=== PATIENT | female | born 1975 | race Caucasian/White ===

== ENCOUNTER 2019-04-03 12:39 | Emergency (ER) | payer OTHER ==
--- NOTE | 2019-04-03 12:49 | PDOC ---
Rapid Medical Evaluation Time Seen by Provider: 04/03/19 12:46 Medical Evaluation: 04/03/19 12:46 CC: kidney stones- u/s performed as outpatient PE: R CVAT Orders: urine, IVF, Toradol The patient will proceed to ED for continued evaluation. Discharge Disposition - Diagnosis Flank pain - Referrals - Patient Instructions - Post Discharge Activity
[2019-04-03 12:50] VITALS: BP 131/86; PULSE 91; TEMP 97.7; BMI 20.9
[2019-04-03] MEDS ORDERED: KETOROLAC TROMETHAMINE 30 MG/1 ML VIAL IVPUSH ONE (12:50)
[2019-04-03] MEDS ORDERED: SODIUM CHLORIDE 1,000 ML IV STA (12:50)
[2019-04-03] MEDS ORDERED: morphine CARPU-JECT 2 MG/1 ML DISP.SYRIN IVPUSH ONE (14:12)
[2019-04-03] MEDS ORDERED: MORPHINE SULFATE 8 MG/ML VIAL ONE (14:15)
--- NOTE | 2019-04-03 14:16 | PDOC ---
History of Present Illness - General Chief Complaint: Pain, Acute Stated Complaint: KIDNEY STONES Time Seen by Provider: 04/03/19 12:46 History Source: Patient Exam Limitations: No Limitations - History of Present Illness Travel History: No Initial Comments: 04/03/19 14:13 44 y/o presents to the ED with c/o Right sided abdominal pain which began this morning at around 3 AM which she describes as sharp causing sweats. Patient denies GI history history, recent travel, recent illness. Patient states took Aleve at around 9 AM with no relief. Patient states went to an urgent care clinic who performed an ultrasound transvaginally and over the kidney was told that she had a dilated ureter and was sent here to the ER for further evaluation. Timing/Duration: reports: constant, intermittent (severe) Quality: reports: moderate, sharpness Abdominal Pain Onset Location: reports: flank Pain Radiation: reports: back Activities at Onset: reports: none Aggravating Factors: improves with: None Alleviating Factors: improves with: None Past History - Travel Traveled outside of the country in the last 30 days: No Close contact w/someone who was outside of country & ill: No - Past Medical History Allergies/Adverse Reactions: Allergies Allergy/AdvReac Type Severity Reaction Status Date / Time No Known Allergies Allergy Verified 04/03/19 12:51 Cancer: Yes (BREAST CA, CYSTS) COPD: No - Surgical History Abdominal Surgery: (TUBAL LIGATION) - Psycho Social/Smoking Cessation Hx Smoking History: Current every day smoker Number of Cigarettes Smoked Daily: 1 Information on smoking cessation initiated: No Hx Alcohol Use: Yes (OCCASIONALLY) Drug/Substance Use Hx: No Patient Lives Alone: No Lives with/in: spouse/SO Review of Systems - Review of Systems Able to Perform ROS?: No Is the patient limited Swazi proficient: No Constitutional: No: Symptoms Reported HEENTM: No: Symptoms Reported Respiratory: No: Symptoms reported Cardiac (ROS): No: Symptoms Reported ABD/GI: Yes: Nausea. No: Constipated, Diarrhea : Yes: Flank Pain Musculoskeletal: No: Symptoms Reported Integumentary: No: Symptoms Reported Neurological: No: Symptoms reported *Physical Exam - Vital Signs Last Vital Signs Temp Pulse Resp BP Pulse Ox 97.7 F 91 H 16 131/86 96 04/03/19 12:48 04/03/19 12:48 04/03/19 12:48 04/03/19 12:48 04/03/19 12:48 - Physical Exam General Appearance: Yes: Nourished, Appropriately Dressed. No: Apparent Distress HEENT: negative: Pale Conjunctivae Neck: positive: Normal Thyroid Respiratory/Chest: positive: Lungs Clear, Normal Breath Sounds. negative: Respiratory Distress, Accessory Muscle Use Cardiovascular: positive: Regular Rhythm, Regular Rate. negative: Murmur Gastrointestinal/Abdominal: positive: Soft, Tenderness (Right flank) Musculoskeletal: positive: CVA Tenderness (R) Extremity: positive: Normal Inspection Integumentary: positive: Normal Color, Warm, Moist Neurologic: positive: Motor Strength 5/5 (Ambulatory) ED Treatment Course - LABORATORY CBC & Chemistry Diagram: 04/03/19 16:04 04/03/19 16:04 - Medications Given in the ED: ED Medications Discontinued Medications Generic Name Dose Route Start Last Admin Trade Name Freq PRN Reason Stop Dose Admin Sodium Chloride 1,000 mls @ 1,000 mls/hr 04/03/19 12:50 04/03/19 13:25 Normal Saline - IV 04/03/19 13:49 1,000 mls/hr ASDIR STA Administration Ketorolac Tromethamine 30 mg 04/03/19 12:50 04/03/19 13:25 Toradol Injection - IVPUSH 04/03/19 12:51 30 mg ONCE ONE Administration Medical Decision Making - Medical Decision Making 04/03/19 14:18 complaint: Patient with right-sided flank pain since 3 AM this morning which occurred suddenly. Patient went to urgent care clinic and was told she had a dilated ureter and likely was passing a kidney stone and was sent to the ER for further evaluation. Exam: Patient with right flank and right CVA tenderness vital signs stable no active vomiting Plan: Urine, IV fluids, Toradol and spiral CT ordered in RME 04/03/19 15:18 Laboratory Tests 04/03/19 14:24 Ur Specific Micro 1.037 H Urine Ketones 1+ H Urine Bilirubin Negative Ur Leukocyte Esterase Negative Patient added for CBC, comp and lipase patient currently in CT. 04/03/19 16:06 Ct shows No evidence of urinary tract calculi or obstructive uropathy. There is noted 11 mm cyst within the upper pole of the right kidney. Patient now complaining of right lower quadrant right suprapubic pain. On reexam she is tender in the right suprapubic area. Will order labs along with serum and transvaginal ultrasound Discharge - Discharge Information Problems reviewed: Yes Clinical Impression/Diagnosis: Abdominal pain Qualifiers: Abdominal location: right lower quadrant Qualified Code(s): R10.31 - Right lower quadrant pain Condition: Stable Disposition: HOME - Follow up/Referral Referrals: ON STAFF,NOT [Primary Care Provider] - - Patient Discharge Instructions Patient Printed Discharge Instructions: DI for Abdominal Pain-Adult Additional Instructions: Thank you for choosing [facility]. It was a pleasure taking care of you. No acute pathology was noted in your imaging Please follow-up with your regular doctor in 2 days Return to the Emergency Department if your symptoms worsen or persist or have other concerning symptoms. - Post Discharge Activity
[2019-04-03 14:44] LABS: PH,URINE 5.5 (5.0-8.0); URINE APPEARANCE CLOUDY; URINE BILIRUBIN NEGATIVE (NEGATIVE); URINE COLOR YELLOW; URINE GLUCOSE (UA) NEGATIVE (NEGATIVE); URINE KETONE 1+ (NEGATIVE); URINE LEUK ESTERASE NEGATIVE (NEGATIVE); URINE NITRITE NEGATIVE (NEGATIVE); URINE PROTEIN TRACE (NEGATIVE)
[2019-04-03 16:35] LABS: BASO % 0.4 % (0-2.0); EOS % 1.5 % (0-4.5); HEMATOCRIT 35.6 % (32.4-45.2); HEMOGLOBIN 11.6 GM/dL (10.7-15.3); LYMPH % 42.1 % (8-40); MCH 30.3 pg (25.7-33.7); MCHC 32.6 g/dl (32.0-36.0); MEAN CELL VOLUME 92.9 fl (80-96); MEAN PLT VOLUME 8.1 fl (7.5-11.1); MONO % 6.3 % (3.8-10.2); NEUT % 49.7 % (42.8-82.8); PLATELET COUNT 311 K/MM3 (134-434); RBC 3.83 M/mm3 (3.60-5.2); RDW 13.3 % (11.6-15.6); WHITE BLOOD COUNT 6.5 K/mm3 (4.0-10.0)
[2019-04-03 16:57] LABS: ALBUMIN 3.7 g/dl (3.4-5.0); BILIRUBIN,TOTAL 0.6 mg/dL (0.2-1); BLOOD UREA NITROGEN 10.7 mg/dL (7-18); CALCIUM 8.2 mg/dL (8.5-10.1); CREATININE 0.7 mg/dL (0.55-1.3); POTASSIUM 3.7 mmol/L (3.5-5.1); TOT PROT 6.6 g/dl (6.4-8.2)
--- NOTE | 2019-04-03 17:27 | PDOC ---
*Physical Exam - Vital Signs Last Vital Signs Temp Pulse Resp BP Pulse Ox 97.7 F 91 H 16 131/86 96 04/03/19 12:48 04/03/19 12:48 04/03/19 12:48 04/03/19 12:48 04/03/19 12:48 ED Treatment Course - LABORATORY CBC & Chemistry Diagram: 04/03/19 16:04 04/03/19 16:04 - ADDITIONAL ORDERS Additional order review: Laboratory Results 04/03/19 04/03/19 04/03/19 16:04 16:04 14:24 Sodium 141 Potassium 3.7 Chloride 111 H Carbon Dioxide 23 Anion Gap 7 L BUN 10.7 Creatinine 0.7 Est GFR (CKD-EPI)AfAm 122.99 Est GFR (CKD-EPI)NonAf 106.12 Random Glucose 73 L Calcium 8.2 L Total Bilirubin 0.6 AST 18 ALT 29 Alkaline Phosphatase 47 Total Protein 6.6 Albumin 3.7 Lipase 153 Serum , Qual Negative Urine Color Yellow Urine Appearance Cloudy Urine pH 5.5 Ur Specific Hinkley 1.037 H Urine Protein Trace Urine Glucose (UA) Negative Urine Ketones 1+ H Urine Blood Negative Urine Nitrite Negative Urine Bilirubin Negative Urine Urobilinogen 1.0 Ur Leukocyte Esterase Negative 04/03/19 16:04 RBC 3.83 MCV 92.9 MCHC 32.6 RDW 13.3 MPV 8.1 Neutrophils % 49.7 Lymphocytes % 42.1 H Monocytes % 6.3 Eosinophils % 1.5 Basophils % 0.4 - Medications Given in the ED: ED Medications Discontinued Medications Generic Name Dose Route Start Last Admin Trade Name Freq PRN Reason Stop Dose Admin Sodium Chloride 1,000 mls @ 1,000 mls/hr 04/03/19 12:50 04/03/19 13:25 Normal Saline - IV 04/03/19 13:49 1,000 mls/hr ASDIR STA Administration Ketorolac Tromethamine 30 mg 04/03/19 12:50 04/03/19 13:25 Toradol Injection - IVPUSH 04/03/19 12:51 30 mg ONCE ONE Administration Morphine Sulfate 2 mg 04/03/19 14:12 04/03/19 14:22 Morphine Injection - IVPUSH 04/03/19 14:13 2 mg ONCE ONE Administration Medical Decision Making - Medical Decision Making Patient signed out to me by MORIS Dawson Patient c/o RLQ pain radiating to back Patient had negative CT A/P Labs were drawn and were unremarkable other than glucose of 73 (patient had orange juice after labs were drawn) Now pending results of TVUS to r/o ovarian torsion or other pathology 04/03/19 17:26 TVUS negative for no acute findings Patient advised to f/u with her PCP stable for dc 04/03/19 17:48 Discharge - Discharge Information Problems reviewed: Yes Clinical Impression/Diagnosis: Abdominal pain Qualifiers: Abdominal location: right lower quadrant Qualified Code(s): R10.31 - Right lower quadrant pain Condition: Stable Disposition: HOME - Admission No - Additional Discharge Information Prescription Drug Monitoring Program (I-STOP) results: I-STOP not reviewed - Follow up/Referral Referrals: ON STAFF,NOT [Primary Care Provider] - - Patient Discharge Instructions Patient Printed Discharge Instructions: DI for Abdominal Pain-Adult Additional Instructions: Thank you for choosing [facility]. It was a pleasure taking care of you. No acute pathology was noted in your imaging Please follow-up with your regular doctor in 2 days Return to the Emergency Department if your symptoms worsen or persist or have other concerning symptoms. - Post Discharge Activity
== END 2019-04-03 18:18 | disposition home or self-care (01) ==
LOC: JER 12:39
PROC: 3E033NZ Introduction of Analgesics, Hypnotics, Sedatives into Peripheral Vein, Percutaneous Approach (ICD-10-PCS; principal; 2019-04-03)
PROC: 3E0333Z Introduction of Anti-inflammatory into Peripheral Vein, Percutaneous Approach (ICD-10-PCS; 2019-04-03)
DX: R10.31 Right lower quadrant pain (principal); Z85.3 Personal history of malignant neoplasm of breast; Z98.51 Tubal ligation status; F17.210 Nicotine dependence, cigarettes, uncomplicated
CPT/HCPCS: 36415; 74176-TC; 76830-TC; 80053; 81003; 83690; 84703; 85025; 87086; 99282-25; J7030

== ENCOUNTER 2021-02-25 13:33 | Emergency (ER) | payer OTHER ==
[2021-02-25 14:14] VITALS: BP 125/76; PULSE 85; TEMP 97.9; BMI 22.3
== END 2021-02-25 21:59 | disposition home or self-care (01) ==
LOC: JER 13:33
PROC: 3E0233Z Introduction of Anti-inflammatory into Muscle, Percutaneous Approach (ICD-10-PCS; principal; 2021-02-25)
DX: N64.4 Mastodynia (principal)
CPT/HCPCS: 76604; 99284-25

== ENCOUNTER 2021-09-06 19:47 | Emergency (ER) | payer OTHER ==
[2021-09-06 20:12] VITALS: BP 121/76; PULSE 101; TEMP 99.4; BMI 23.6
[2021-09-06] MEDS ORDERED: KETOROLAC TROMETHAMINE 30 MG/1 ML VIAL IM ONE (20:12)
[2021-09-06] MEDS ORDERED: ACETAMINOPHEN 500 MG TABLET (FP) PO ONE (20:12)
[2021-09-06] MEDS ORDERED: ACETAMINOPHEN 325 MG TABLET (FP) ONE (20:36)
[2021-09-06] MEDS ORDERED: KETOROLAC TROMETHAMINE 30 MG/1 ML VIAL ONE (20:36)
== END 2021-09-06 21:15 | disposition home or self-care (01) ==
LOC: JER 19:47
PROC: 3E0233Z Introduction of Anti-inflammatory into Muscle, Percutaneous Approach (ICD-10-PCS; principal; 2021-09-06)
DX: U07.1 COVID-19 (principal)
CPT/HCPCS: 0241U-QW; 96372; 99284-25

== ENCOUNTER 2021-12-09 12:19 | Emergency (ER) | payer OTHER ==
[2021-12-09 12:31] VITALS: BP 108/62; PULSE 103; RESP 18; TEMP 97.5; BMI 24.0
[2021-12-09] MEDS ORDERED: SODIUM CHLORIDE 0.9% 500 ML INFUS.BAG IV ONE ×2 (15:13→17:50)
[2021-12-09] MEDS ORDERED: ONDANSETRON 4 MG/2 ML VIAL IVPUSH ONE (15:13)
[2021-12-09] MEDS ORDERED: MECLIZINE HCL 25 MG TABLET (FP) PO ONE (15:13)
[2021-12-09] MEDS ORDERED: ACETAMINOPHEN 1000 MG/100 ML BAG IVPB ONE (15:38)
[2021-12-09] MEDS ORDERED: MECLIZINE HCL 25 MG TABLET (FP) ONE (15:40)
[2021-12-09] MEDS ORDERED: ACETAMINOPHEN INJECTION 100 ML IVPB ONE (15:40)
[2021-12-09] MEDS ORDERED: ONDANSETRON 4 MG/2 ML VIAL ONE (15:40)
[2021-12-09 15:52] LABS: BASO % 0.7 % (0-2.0); EOS % 0.3 % (0-4.5); HEMATOCRIT 38.6 % (32.4-45.2); HEMOGLOBIN 12.4 GM/dL (10.7-15.3); LYMPH % 15.1 % (8-40); MCHC 32.1 g/dl (32.0-36.0); MEAN CELL VOLUME 90.3 fl (80-96); MEAN PLT VOLUME 8.4 fl (7.5-11.1); MONO % 2.1 % (3.8-10.2); NEUT % 81.8 % (42.8-82.8); PLATELET COUNT 351 10^3/uL (134-434); RBC 4.27 M/mm3 (3.60-5.2); RDW 13.8 % (11.6-15.6); WHITE BLOOD COUNT 8.8 K/mm3 (4.0-10.0)
[2021-12-09 16:21] LABS: BLOOD UREA NITROGEN 12.7 mg/dL (7-18); CALCIUM 8.9 mg/dL (8.5-10.1)
[2021-12-09 16:23] LABS: CREATININE 0.7 mg/dL (0.55-1.3); PHOSPHOROUS 3.6 mg/dL (2.5-4.9)
[2021-12-09 16:26] LABS: BILIRUBIN,TOTAL 0.6 mg/dL (0.2-1); TOT PROT 7.6 g/dl (6.4-8.2)
[2021-12-09 17:42] LABS: EPI CELLS 13 /uL (0-25.1); HYALINE CASTS 4 /uL (0-3.1); PH,URINE 5.5 (5.0-8.0); URINE APPEARANCE CLEAR; URINE BACTERIA >9,000 /uL (0-1359); URINE BILIRUBIN NEGATIVE (NEGATIVE); URINE COLOR YELLOW; URINE GLUCOSE (UA) NEGATIVE (NEGATIVE); URINE KETONE 2+ (NEGATIVE); URINE LEUK ESTERASE NEGATIVE (NEGATIVE); URINE NITRITE POSITIVE (NEGATIVE); URINE PROTEIN TRACE (NEGATIVE); URINE RBC 10 /uL (0-23.9); URINE WBC 20 /uL (0-25.8)
[2021-12-09] MEDS ORDERED: SODIUM CHLORIDE 0.9% 1000 ML INFUS.BAG IV ONE (17:49)
[2021-12-09] MEDS ORDERED: CEPHALEXIN MONOHYDRATE 500 MG CAPSULE (UD) PO ONE (17:50)
[2021-12-09] MEDS ORDERED: CEPHALEXIN MONOHYDRATE 250 MG CAPSULE (FP) ONE (18:14)
[2021-12-09] MEDS ORDERED: CEPHALEXIN MONOHYDRATE 500 MG CAPSULE (UD) ONE (18:16)
== END 2021-12-09 18:50 | disposition home or self-care (01) ==
LOC: JER 12:19
PROC: 3E0333Z Introduction of Anti-inflammatory into Peripheral Vein, Percutaneous Approach (ICD-10-PCS; principal; 2021-12-09)
PROC: 3E033GC Introduction of Other Therapeutic Substance into Peripheral Vein, Percutaneous Approach (ICD-10-PCS; 2021-12-09)
DX: N30.00 Acute cystitis without hematuria (principal)
CPT/HCPCS: 36415; 70450-TC; 80053; 81003; 83690; 83735; 84100; 84703; 85025; 87086; 87186; 93005; 93010; 99285-25

== ENCOUNTER 2022-08-01 17:10 | Observation (INO) | payer OTHER ==
[2022-08-01 19:06] LABS: BASO % 1.1 % (0-2.0); EOS % 2.3 % (0-4.5); HEMATOCRIT 36.1 % (32.4-45.2); LYMPH % 41.9 % (8-40); MCH 29.5 pg (25.7-33.7); MCHC 33.1 g/dl (32.0-36.0); MEAN PLT VOLUME 7.6 fl (7.5-11.1); MONO % 5.9 % (3.8-10.2); NEUT % 48.8 % (42.8-82.8); PLATELET COUNT 314 10^3/uL (134-434); RBC 4.06 M/mm3 (3.60-5.2); RDW 13.7 % (11.6-15.6); WHITE BLOOD COUNT 6.4 K/mm3 (4.0-10.0)
[2022-08-01 19:20] LABS: CALCIUM 9.3 mg/dL (8.5-10.1)
[2022-08-01 19:21] LABS: ALBUMIN 3.8 g/dl (3.4-5.0)
[2022-08-01] MEDS ORDERED: ACETAMINOPHEN 1000 MG/100 ML BAG IVPB ONE (19:21)
[2022-08-01] MEDS ORDERED: LACTATED RINGERS SOLUTION 1000 ML INFUS.BAG IV ONE (19:21)
[2022-08-01] MEDS ORDERED: morphine SULFATE 4 MG/ML VIAL IVPUSH ONE (19:21)
[2022-08-01 19:24] LABS: CREATININE 0.8 mg/dL (0.55-1.3)
[2022-08-01 19:25] LABS: BILIRUBIN,TOTAL 0.4 mg/dL (0.2-1); TOT PROT 7.5 g/dl (6.4-8.2)
[2022-08-01] MEDS ORDERED: morphine SULFATE 4 MG/ML VIAL ONE (19:41)
[2022-08-01] MEDS ORDERED: ACETAMINOPHEN INJECTION 100 ML IVPB ONE (19:42)
[2022-08-01 19:50] LABS: EPI CELLS 10 /uL (0-25.1); HYALINE CASTS 0 /uL (0-3.1); URINE APPEARANCE CLEAR; URINE BACTERIA 352 /uL (0-1359); URINE BILIRUBIN NEGATIVE (NEGATIVE); URINE COLOR YELLOW; URINE GLUCOSE (UA) NEGATIVE (NEGATIVE); URINE KETONE NEGATIVE (NEGATIVE); URINE LEUK ESTERASE TRACE (NEGATIVE); URINE NITRITE NEGATIVE (NEGATIVE); URINE PROTEIN NEGATIVE (NEGATIVE); URINE RBC 7 /uL (0-23.9); URINE UROBILINOGEN 0.2 mg/dL (0.2-1.0); URINE WBC 9 /uL (0-25.8)
[2022-08-01] MEDS ORDERED: FENTANYL CITRATE/PF 50 MCG/ML VIAL ONE (20:22)
[2022-08-01] MEDS ORDERED: KETOROLAC TROMETHAMINE 15 MG/ML VIAL IVPUSH ONE (20:43)
[2022-08-01] MEDS ORDERED: KETOROLAC TROMETHAMINE 15 MG/ML VIAL ONE (20:45)
[2022-08-01] MEDS ORDERED: HYDROmorphone HCl 2 MG/ML VIAL IVPUSH ONE (22:34)
[2022-08-01] MEDS ORDERED: HYDROmorphone HCl 2 MG/ML VIAL ONE (22:40)
[2022-08-01] MEDS ORDERED: MECLIZINE HCL 25 MG TABLET (FP) PO ONE (23:25)
[2022-08-01] MEDS ORDERED: ONDANSETRON 4 MG/2 ML VIAL IVPUSH ONE (23:29)
[2022-08-01] MEDS ORDERED: LORazepam 2 MG/ML SDV VIAL IVPUSH ONE (23:42)
[2022-08-02] MEDS: SODIUM CHLORIDE 1,000 ML IV SCH ×2 (01:35→11:52)
[2022-08-02] MEDS: ACETAMINOPHEN 1000 MG/100 ML BAG IVPB PRN ×2 (02:37→09:15)
[2022-08-02 04:14] VITALS: BMI 25.9
[2022-08-02] MEDS: POLYETHYLENE GLYCOL (HEALTHYLAX) 3350 17 GM PACKET PO SCH ×2 (07:02→14:35)
[2022-08-02 08:41] LABS: BASO % 0.8 % (0-2.0); EOS % 2.7 % (0-4.5); HEMATOCRIT 31.9 % (32.4-45.2); HEMOGLOBIN 10.8 GM/dL (10.7-15.3); LYMPH % 44.7 % (8-40); MCH 30.1 pg (25.7-33.7); MCHC 33.9 g/dl (32.0-36.0); MEAN CELL VOLUME 88.7 fl (80-96); MEAN PLT VOLUME 8.1 fl (7.5-11.1); MONO % 6.1 % (3.8-10.2); NEUT % 45.7 % (42.8-82.8); PLATELET COUNT 271 10^3/uL (134-434); RBC 3.59 M/mm3 (3.60-5.2); RDW 13.7 % (11.6-15.6); WHITE BLOOD COUNT 5.5 K/mm3 (4.0-10.0)
[2022-08-02 09:07] LABS: BLOOD UREA NITROGEN 7.6 mg/dL (7-18); CALCIUM 8.2 mg/dL (8.5-10.1); MAGNESIUM 1.7 mg/dL (1.8-2.4)
[2022-08-02 09:10] LABS: CREATININE 0.7 mg/dL (0.55-1.3); PHOSPHOROUS 3.7 mg/dL (2.5-4.9)
[2022-08-02 09:12] LABS: BILIRUBIN,TOTAL 0.8 mg/dL (0.2-1)
[2022-08-02] MEDS: ENOXAPARIN NA (PORCINE) 40 MG/0.4 ML DISP.SYRIN SQ SCH (09:48)
[2022-08-02] MEDS ORDERED: PANTOPRAZOLE SODIUM 40 MG in SODIUM CHLORIDE 100 ML IVPB SCH (10:15)
[2022-08-02] MEDS ORDERED: IBUPROFEN 400 MG TABLET (FP) PO PRN ×2 (11:06→12:04)
[2022-08-02] MEDS ORDERED: MAGNESIUM 2GM/50ML STERILE WATER IVPB IVPB ONE (11:15)
[2022-08-02] MEDS: PANTOPRAZOLE SODIUM 40 MG VIAL IVPUSH SCH (11:45)
[2022-08-02] MEDS: DEXTROSE 5%-NORMAL SALINE 1,000 ML IV SCH (17:08)
[2022-08-02] MEDS ORDERED: LORazepam 0.5 MG TABLET PO ONE (17:32)
[2022-08-02] MEDS ORDERED: LORazepam 0.5 MG TABLET PO PRN (17:32)
[2022-08-02] MEDS ORDERED: oxyCODONE HCL 5 MG TABLET PO PRN (17:34)
[2022-08-02] MEDS: IBUPROFEN 600 MG TABLET (FP) PO SCH (18:09)
[2022-08-03] MEDS: ACETAMINOPHEN 1000 MG/100 ML BAG IVPB PRN (01:35)
[2022-08-03] MEDS: IBUPROFEN 600 MG TABLET (FP) PO SCH ×3 (01:35→16:55)
[2022-08-03 08:21] LABS: BASO % 0.9 % (0-2.0); EOS % 3.7 % (0-4.5); HEMATOCRIT 31.2 % (32.4-45.2); HEMOGLOBIN 10.5 GM/dL (10.7-15.3); LYMPH % 46.3 % (8-40); MCHC 33.8 g/dl (32.0-36.0); MEAN CELL VOLUME 88.9 fl (80-96); NEUT % 42.1 % (42.8-82.8); PLATELET COUNT 272 10^3/uL (134-434); RBC 3.51 M/mm3 (3.60-5.2); RDW 13.6 % (11.6-15.6); WHITE BLOOD COUNT 3.8 K/mm3 (4.0-10.0)
[2022-08-03 08:40] LABS: POTASSIUM 4.3 mmol/L (3.5-5.1)
[2022-08-03 09:14] LABS: CALCIUM 7.9 mg/dL (8.5-10.1)
[2022-08-03] MEDS ORDERED: IBUPROFEN 800 MG/8 ML IJ IVPB ONE ×2 (09:14→12:00)
[2022-08-03 09:15] LABS: ALBUMIN 2.8 g/dl (3.4-5.0); MAGNESIUM 2.1 mg/dL (1.8-2.4)
[2022-08-03 09:16] LABS: BLOOD UREA NITROGEN 5.1 mg/dL (7-18)
[2022-08-03 09:18] LABS: CREATININE 0.6 mg/dL (0.55-1.3)
[2022-08-03 09:20] LABS: BILIRUBIN,TOTAL 0.4 mg/dL (0.2-1); TOT PROT 5.7 g/dl (6.4-8.2)
[2022-08-03] MEDS: ENOXAPARIN NA (PORCINE) 40 MG/0.4 ML DISP.SYRIN SQ SCH (10:35)
[2022-08-03] MEDS: PANTOPRAZOLE SODIUM 40 MG VIAL IVPUSH SCH (12:52)
[2022-08-03] MEDS ORDERED: oxyCODONE HCL 5 MG TABLET PO PRN (15:00)
[2022-08-03] MEDS: morphine SULFATE 4 MG/ML VIAL IVPUSH PRN ×3 (15:17→23:14)
[2022-08-03 15:56] VITALS: RESP 18
[2022-08-03] MEDS: DEXTROSE 5%-NORMAL SALINE 1,000 ML IV SCH ×2 (17:00→23:13)
[2022-08-03] MEDS ORDERED: metroNIDAZOLE 500 MG PREMIXED 250 MG/50 ML MG IVPB SCH (17:00)
[2022-08-03] MEDS: POLYETHYLENE GLYCOL (HEALTHYLAX) 3350 17 GM PACKET PO SCH (21:17)
[2022-08-04] MEDS: IBUPROFEN 600 MG TABLET (FP) PO SCH ×3 (01:27→16:55)
[2022-08-04] MEDS ORDERED: MELATONIN 5 MG TABLETS PO ONE ×2 (01:45→05:46)
[2022-08-04] MEDS: morphine SULFATE 4 MG/ML VIAL IVPUSH PRN (04:46)
[2022-08-04 08:54] LABS: INR 1.01 (0.83-1.09); PROTHROMBIN TIME (PATIENT) 11.7 SEC (9.7-13.0)
[2022-08-04 08:55] LABS: BASO % 0.9 % (0-2.0); EOS % 4.8 % (0-4.5); HEMATOCRIT 31.7 % (32.4-45.2); HEMOGLOBIN 10.7 GM/dL (10.7-15.3); LYMPH % 44.1 % (8-40); MCH 30.2 pg (25.7-33.7); MCHC 33.8 g/dl (32.0-36.0); MEAN CELL VOLUME 89.5 fl (80-96); MEAN PLT VOLUME 8.5 fl (7.5-11.1); MONO % 6.9 % (3.8-10.2); NEUT % 43.3 % (42.8-82.8); PLATELET COUNT 277 10^3/uL (134-434); RBC 3.54 M/mm3 (3.60-5.2); RDW 13.5 % (11.6-15.6); WHITE BLOOD COUNT 3.7 K/mm3 (4.0-10.0)
[2022-08-04 09:04] LABS: POTASSIUM 4.2 mmol/L (3.5-5.1)
[2022-08-04 09:11] LABS: CALCIUM 8.1 mg/dL (8.5-10.1)
[2022-08-04 09:12] LABS: MAGNESIUM 1.7 mg/dL (1.8-2.4)
[2022-08-04 09:13] LABS: ALBUMIN 2.9 g/dl (3.4-5.0)
[2022-08-04 09:15] LABS: CREATININE 0.6 mg/dL (0.55-1.3)
[2022-08-04 09:16] LABS: BILIRUBIN,TOTAL 0.3 mg/dL (0.2-1); TOT PROT 5.9 g/dl (6.4-8.2)
[2022-08-04 09:17] LABS: BLOOD UREA NITROGEN 5.6 mg/dL (7-18)
[2022-08-04] MEDS: PANTOPRAZOLE SODIUM 40 MG VIAL IVPUSH SCH (10:14)
[2022-08-04] MEDS: ENOXAPARIN NA (PORCINE) 40 MG/0.4 ML DISP.SYRIN SQ SCH (10:14)
[2022-08-04] MEDS: POLYETHYLENE GLYCOL (HEALTHYLAX) 3350 17 GM PACKET PO SCH ×2 (10:15→21:36)
[2022-08-04 10:53] LABS: ERYTHROCYTE SEDIMENTATION RATE 8 mm/hr (0-20)
[2022-08-04] MEDS: LIDOCAINE 5% TOPICAL PATCH TP SCH (13:13)
[2022-08-04] MEDS: ACETAMINOPHEN 500 MG TABLET (FP) PO SCH ×2 (13:13→17:32)
[2022-08-04] MEDS ORDERED: traMADol HCL 50 MG TABLET PO PRN (16:41)
[2022-08-04] MEDS ORDERED: MELATONIN 5 MG TABLETS PO PRN (16:43)
[2022-08-04] MEDS ORDERED: SENNOSIDES 8.6MG TABLET (FP) PO PRN (16:44)
[2022-08-04] MEDS: DEXTROSE 5%-NORMAL SALINE 1,000 ML IV SCH (16:56)
[2022-08-04] MEDS ORDERED: morphine SULFATE 4 MG/ML VIAL IVPUSH ONE (20:32)
[2022-08-04] MEDS: DOCUSATE SODIUM 100 MG CAPSULE (FP) PO SCH (21:35)
[2022-08-04] MEDS ORDERED: LIDOCAINE PATCH REMOVAL MC SCH (22:00)
[2022-08-05] MEDS: ACETAMINOPHEN 500 MG TABLET (FP) PO SCH ×3 (01:01→11:09)
[2022-08-05] MEDS: IBUPROFEN 600 MG TABLET (FP) PO SCH ×2 (01:19→10:40)
[2022-08-05] MEDS: DOCUSATE SODIUM 100 MG CAPSULE (FP) PO SCH ×2 (06:48→14:17)
[2022-08-05 08:12] LABS: BASO % 0.9 % (0-2.0); HEMATOCRIT 32.9 % (32.4-45.2); HEMOGLOBIN 10.9 GM/dL (10.7-15.3); LYMPH % 48.6 % (8-40); MCH 29.6 pg (25.7-33.7); MCHC 33.1 g/dl (32.0-36.0); MEAN CELL VOLUME 89.4 fl (80-96); MONO % 7.9 % (3.8-10.2); NEUT % 37.6 % (42.8-82.8); PLATELET COUNT 295 10^3/uL (134-434); RBC 3.69 M/mm3 (3.60-5.2); RDW 13.6 % (11.6-15.6); WHITE BLOOD COUNT 3.5 K/mm3 (4.0-10.0)
[2022-08-05 08:33] LABS: POTASSIUM 4.4 mmol/L (3.5-5.1)
[2022-08-05 08:37] LABS: CALCIUM 8.5 mg/dL (8.5-10.1)
[2022-08-05 08:38] LABS: ALBUMIN 3.2 g/dl (3.4-5.0); BLOOD UREA NITROGEN 6.4 mg/dL (7-18); MAGNESIUM 1.9 mg/dL (1.8-2.4)
[2022-08-05 08:41] LABS: CREATININE 0.7 mg/dL (0.55-1.3)
[2022-08-05 08:42] LABS: TOT PROT 6.1 g/dl (6.4-8.2)
[2022-08-05 08:46] LABS: BILIRUBIN,TOTAL 0.5 mg/dL (0.2-1)
[2022-08-05] MEDS ORDERED: BISACODYL 10 MG SUPP.RECT PR ONE (09:07)
[2022-08-05] MEDS ORDERED: oxyCODONE HCL 5 MG TABLET PO PRN (10:04)
[2022-08-05] MEDS: ENOXAPARIN NA (PORCINE) 40 MG/0.4 ML DISP.SYRIN SQ SCH (10:38)
[2022-08-05] MEDS: POLYETHYLENE GLYCOL (HEALTHYLAX) 3350 17 GM PACKET PO SCH ×2 (10:40→11:06)
[2022-08-05] MEDS: PANTOPRAZOLE SODIUM 40 MG VIAL IVPUSH SCH ×2 (10:40→11:04)
[2022-08-05] MEDS: PANTOPRAZOLE 40 MG TABLET PO SCH ×2 (10:42→11:11)
[2022-08-05] MEDS: LIDOCAINE 5% TOPICAL PATCH TP SCH (10:45)
[2022-08-05 15:04] VITALS: BP 121/70; PULSE 63; TEMP 98.6
== END 2022-08-05 15:05 | disposition home or self-care (01) ==
LOC: JER 17:10 → JERBED 22:23 → J8W 08-02 01:57
PROVIDERS: ADMIT Internal Medicine; ATTEND Nurse Practitioner Family
PROC: 3E033NZ Introduction of Analgesics, Hypnotics, Sedatives into Peripheral Vein, Percutaneous Approach (ICD-10-PCS; principal; 2022-08-01)
PROC: 3E0337Z Introduction of Electrolytic and Water Balance Substance into Peripheral Vein, Percutaneous Approach (ICD-10-PCS; 2022-08-01)
PROC: 3E023GC Introduction of Other Therapeutic Substance into Muscle, Percutaneous Approach (ICD-10-PCS; 2022-08-01)
PROC: 3E033NZ Introduction of Analgesics, Hypnotics, Sedatives into Peripheral Vein, Percutaneous Approach (ICD-10-PCS; 2022-08-01)
PROC: 3E0333Z Introduction of Anti-inflammatory into Peripheral Vein, Percutaneous Approach (ICD-10-PCS; 2022-08-01)
PROC: 3E0337Z Introduction of Electrolytic and Water Balance Substance into Peripheral Vein, Percutaneous Approach (ICD-10-PCS; 2022-08-01)
DX: K63.89 Other specified diseases of intestine (principal); Z29.9 Encounter for prophylactic measures, unspecified; N20.0 Calculus of kidney; K59.00 Constipation, unspecified; R42 Dizziness and giddiness
CPT/HCPCS: 36415; 74177-TC; 76830-TC; 80053; 81003; 82962; 83605; 83690; 83735; 84100; 84484; 84703; 85025; 85610; 85651; 86140; 87086; 93005; 93010; 96365; 96372; 96374; 96375; 96376; 99285-25; C9803-CS; G0378; Q9967; U0003; U0005

== ENCOUNTER 2022-08-07 12:52 | Emergency (ER) | payer OTHER ==
[2022-08-07 13:06] VITALS: BP 126/82; PULSE 87; RESP 20; TEMP 98.3; BMI 25.0
[2022-08-07] MEDS ORDERED: IBUPROFEN 400 MG TABLET (FP) PO ONE ×2 (14:00→14:11)
[2022-08-07] MEDS ORDERED: CEPHALEXIN MONOHYDRATE 500 MG CAPSULE (UD) PO ONE (15:09)
[2022-08-07] MEDS ORDERED: CEPHALEXIN MONOHYDRATE 500 MG CAPSULE (UD) ONE (15:30)
== END 2022-08-07 15:49 | disposition home or self-care (01) ==
LOC: JER 12:52
DX: M79.601 Pain in right arm (principal); I80.8 Phlebitis and thrombophlebitis of other sites; L03.113 Cellulitis of right upper limb; I82.611 Acute embolism and thrombosis of superficial veins of right upper extremity
CPT/HCPCS: 93971; 99284-25

== ENCOUNTER 2022-08-09 17:18 | Emergency (ER) | payer OTHER ==
[2022-08-09 17:33] VITALS: BP 133/71; PULSE 78; RESP 18; TEMP 98.1; BMI 25.0
== END 2022-08-09 21:24 | disposition home or self-care (01) ==
LOC: JER 17:18
DX: M79.601 Pain in right arm (principal); I82.611 Acute embolism and thrombosis of superficial veins of right upper extremity
CPT/HCPCS: 93971; 99284-25

== ENCOUNTER 2022-08-29 18:23 | Emergency (ER) | payer OTHER ==
[2022-08-29 18:32] VITALS: BP 138/82; PULSE 93; RESP 18; TEMP 98.4; BMI 25.0
[2022-08-29] MEDS ORDERED: ACETAMINOPHEN 500 MG TABLET (FP) PO ONE (19:00)
[2022-08-29] MEDS ORDERED: KETOROLAC TROMETHAMINE 30 MG/1 ML VIAL IM ONE (19:00)
[2022-08-29] MEDS ORDERED: ACETAMINOPHEN 325 MG TABLET (FP) ONE (19:21)
[2022-08-29] MEDS ORDERED: KETOROLAC TROMETHAMINE 30 MG/1 ML VIAL ONE (19:22)
== END 2022-08-29 21:11 | disposition home or self-care (01) ==
LOC: JER 18:23
DX: M79.601 Pain in right arm (principal)
CPT/HCPCS: 93971; 99284-25

== ENCOUNTER 2022-11-29 10:46 | Day surgery (SDC) | payer OTHER ==
[2022-11-23 12:58] VITALS: BMI 25.2
[2022-11-29 12:42] VITALS: PULSE 77
[2022-11-29 12:45] VITALS: BP 121/78; RESP 19; TEMP 97.4
== END 2022-11-29 12:45 | disposition home or self-care (01) ==
LOC: FASU-ENDO 10:46
PROVIDERS: ATTEND Internal Medicine Gastroenterology
PROC: 0DBN8ZX Excision of Sigmoid Colon, Via Natural or Artificial Opening Endoscopic, Diagnostic (ICD-10-PCS; 2022-11-29)
PROC: 0DBP8ZX Excision of Rectum, Via Natural or Artificial Opening Endoscopic, Diagnostic (ICD-10-PCS; principal; 2022-11-29 11:40)
DX: Z12.11 Encounter for screening for malignant neoplasm of colon (principal); K62.1 Rectal polyp; K63.5 Polyp of colon; K64.0 First degree hemorrhoids
CPT/HCPCS: 81025

== ENCOUNTER 2023-02-24 23:36 | Observation (INO) | payer OTHER ==
[2023-02-24 23:51] VITALS: BMI 25.0
[2023-02-25 00:35] VITALS: TEMP 97.6
[2023-02-25 00:45] LABS: BASO % 0.9 % (0-2.0); EOS % 2.1 % (0-4.5); HEMATOCRIT 39.3 % (32.4-45.2); HEMOGLOBIN 12.8 GM/dL (10.7-15.3); MCH 29.6 pg (25.7-33.7); MCHC 32.6 g/dl (32.0-36.0); MEAN CELL VOLUME 90.8 fl (80-96); MEAN PLT VOLUME 7.7 fl (7.5-11.1); MONO % 5.8 % (3.8-10.2); NEUT % 52.2 % (42.8-82.8); PLATELET COUNT 351 10^3/uL (134-434); RBC 4.33 M/mm3 (3.60-5.2); RDW 13.2 % (11.6-15.6); WHITE BLOOD COUNT 9.1 K/mm3 (4.0-10.0)
[2023-02-25 00:58] LABS: POTASSIUM 3.9 mmol/L (3.5-5.1)
[2023-02-25 01:00] LABS: ALBUMIN 4.1 g/dl (3.4-5.0); CALCIUM 9.2 mg/dL (8.5-10.1)
[2023-02-25 01:01] LABS: BLOOD UREA NITROGEN 15.4 mg/dL (7-18)
[2023-02-25 01:04] LABS: CREATININE 0.9 mg/dL (0.55-1.3)
[2023-02-25 01:05] LABS: TOT PROT 7.7 g/dl (6.4-8.2)
[2023-02-25 01:06] LABS: BILIRUBIN,TOTAL 0.4 mg/dL (0.2-1)
[2023-02-25 01:08] LABS: VENOUS O2 SATURATION 51.9 % (70-80); VENOUS PCO2 42.1 mmHg (38-52); VENOUS PH 7.362 (7.310-7.410)
[2023-02-25] MEDS ORDERED: SODIUM CHLORIDE 0.9% 500 ML INFUS.BAG IV ONE (03:16)
[2023-02-25 03:59] LABS: OPIATES, URI NEGATIVE (NEGATIVE); URINE BARBITURATES NEGATIVE (NEGATIVE)
[2023-02-25 04:00] LABS: METHADONE, UR NEGATIVE (NEGATIVE); PHENCYCLIDINE,URINE NEGATIVE (NEGATIVE); URINE BENZODIAZEPINES NEGATIVE (NEGATIVE)
[2023-02-25] MEDS ORDERED: MAGNESIUM 1GM/D5W 100ML - 100 ML IVPB IVPB ONE (04:46)
[2023-02-25] MEDS ORDERED: MAGNESIUM 1GM/D5W - 1 GM/100 ML IVPB IVPB ONE (04:50)
[2023-02-25 06:28] LABS: COCAINE, UR NEGATIVE (NEGATIVE); URINE AMPHETAMINES NEGATIVE (NEGATIVE)
[2023-02-25] MEDS ORDERED: LACTATED RINGERS SOLUTION 1000 ML INFUS.BAG IV ONE (07:45)
[2023-02-25 08:05] VITALS: RESP 16
[2023-02-25 08:37] LABS: MAGNESIUM 2.2 mg/dL (1.8-2.4)
[2023-02-25] MEDS ORDERED: ENOXAPARIN NA (PORCINE) 40 MG/0.4 ML DISP.SYRIN SQ ONE (08:39)
[2023-02-25] MEDS ORDERED: ENOXAPARIN NA (PORCINE) 40 MG/0.4 ML DISP.SYRIN SQ SCH (10:00)
[2023-02-25 11:30] LABS: POTASSIUM 4.5 mmol/L (3.5-5.1)
[2023-02-25 11:32] LABS: ALBUMIN 3.3 g/dl (3.4-5.0); BLOOD UREA NITROGEN 12.5 mg/dL (7-18); CALCIUM 8.5 mg/dL (8.5-10.1)
[2023-02-25 11:35] LABS: BILIRUBIN,DIRECT 0.1 mg/dL (0.0-0.2); CREATININE 0.8 mg/dL (0.55-1.3)
[2023-02-25 11:37] LABS: BILIRUBIN,TOTAL 0.3 mg/dL (0.2-1); TOT PROT 6.4 g/dl (6.4-8.2)
[2023-02-25 14:01] VITALS: BP 131/47; PULSE 73
== END 2023-02-25 17:01 | disposition home or self-care (01) ==
LOC: JER 23:36 → JERBED 02-25 04:43
PROVIDERS: ADMIT Internal Medicine; ATTEND Internal Medicine
PROC: 3E023GC Introduction of Other Therapeutic Substance into Muscle, Percutaneous Approach (ICD-10-PCS; principal; 2023-02-25)
PROC: 3E033GC Introduction of Other Therapeutic Substance into Peripheral Vein, Percutaneous Approach (ICD-10-PCS; 2023-02-25)
PROC: 3E0337Z Introduction of Electrolytic and Water Balance Substance into Peripheral Vein, Percutaneous Approach (ICD-10-PCS; 2023-02-25)
DX: T39.1X1A Poisoning by 4-Aminophenol derivatives, accidental (unintentional), initial encounter (principal); X58.XXXA Exposure to other specified factors, initial encounter; Y93.89 Activity, other specified; G93.41 Metabolic encephalopathy; F10.99 Alcohol use, unspecified with unspecified alcohol-induced disorder; I45.81 Long QT syndrome; Y92.89 Other specified places as the place of occurrence of the external cause; Z87.738 Personal history of other specified (corrected) congenital malformations of digestive system; K92.9 Disease of digestive system, unspecified; K59.00 Constipation, unspecified
CPT/HCPCS: 36415; 71045-TC-FY; 80048; 80053; 80076; 80307; 82550; 82803; 83735; 84484; 84703; 85025; 93005; 93010; 96361; 96372; 96374; 99285-25; G0378

== ENCOUNTER 2024-08-19 06:23 | Day surgery (SDC) | payer OTHER ==
[2024-08-14 17:18] VITALS: BMI 27.4
[2024-08-19] MEDS ORDERED: LIDOCAINE HCL 1%, 10 MG/ML (20ML VIAL) ONE (07:12)
[2024-08-19] MEDS ORDERED: GENTAMICIN SO4 80 MG/2 ML VIAL ONE (07:12)
[2024-08-19] MEDS ORDERED: DEXAMETHASONE SOD PHOSPHATE 4 MG/1 ML VIAL ONE ×3 (07:13→08:34)
[2024-08-19] MEDS ORDERED: BUPIVACAINE HCL/PF 0.5% (5MG/ML) 10 ML VIAL ONE ×2 (07:13→08:34)
[2024-08-19] MEDS ORDERED: LIDOCAINE HCL/PF 2% SDV 5ML VIAL ONE (07:14)
[2024-08-19] MEDS ORDERED: PROPOFOL 20 ML ONE (07:15)
[2024-08-19] MEDS ORDERED: MIDAZOLAM HCL 2 MG/2 ML SINGLE DOSE VIAL ONE (07:15)
[2024-08-19] MEDS ORDERED: KETOROLAC TROMETHAMINE 30 MG/1 ML VIAL ONE (07:44)
[2024-08-19] MEDS ORDERED: ONDANSETRON 4 MG/2 ML VIAL ONE (07:44)
[2024-08-19] MEDS ORDERED: ceFAZolin SODIUM 1 GM VIAL ONE (07:44)
[2024-08-19] MEDS: ceFAZolin SODIUM 1 GM VIAL IVPB ONE (07:45)
[2024-08-19] MEDS ORDERED: PROMETHAZINE HCL 25 MG/1 ML VIAL IVPB PRN (07:53)
[2024-08-19] MEDS ORDERED: ONDANSETRON 4 MG/2 ML VIAL IVPUSH PRN (07:53)
[2024-08-19] MEDS ORDERED: oxyCODONE HCL 5 MG TABLET PO PRN (07:53)
[2024-08-19] MEDS: LIDOCAINE HCL 1%, 10 MG/ML (20ML VIAL) INF ONE (07:56)
[2024-08-19] MEDS: BUPIVACAINE HCL/PF 0.5% (5MG/ML) 10 ML VIAL IJ ONE ×2 (07:56→08:38)
[2024-08-19] MEDS: DEXAMETHASONE SOD PHOSPHATE 4 MG/1 ML VIAL IM ONE (08:38)
[2024-08-19] MEDS: BENZOIN 118 ML SPRAY.PUMP TP ONE (08:39)
[2024-08-19] MEDS: ACETAMINOPHEN 1000 MG/100 ML BAG IVPB ONE (08:54)
[2024-08-19] MEDS: LACTATED RINGERS SOLUTION 1,000 ML IV SCH (08:55)
[2024-08-19] MEDS ORDERED: oxyCODONE HCL 5 MG TABLET ONE (13:25)
[2024-08-19] MEDS: oxyCODONE HCL 5 MG TABLET PO PRN (13:28)
[2024-08-19 13:45] VITALS: RESP 18
[2024-08-19 16:22] VITALS: BP 124/76; PULSE 68; TEMP 97.5
== END 2024-08-19 14:55 | disposition home or self-care (01) ==
LOC: JASU-SURG 06:23
PROVIDERS: ATTEND Podiatrist Foot Surgery
PROC: 0QSN04Z Reposition Right Metatarsal with Internal Fixation Device, Open Approach (ICD-10-PCS; principal; 2024-08-19 07:30)
DX: M20.11 Hallux valgus (acquired), right foot (principal)
CPT/HCPCS: 36415; 73630-TC-RT-FY; 81025; 82550; 82553; 84484; 88305-TC; 88311-TC; 93005; 93010; 94760

== ENCOUNTER 2024-10-06 06:20 | Day surgery (SDC) | payer OTHER ==
[2024-10-02 13:31] VITALS: BMI 27.6
[2024-10-06] MEDS ORDERED: PROPOFOL 20 ML ONE (07:43)
[2024-10-06] MEDS ORDERED: ROCURONIUM BROMIDE 50 MG/5 ML SYRINGE ONE ×2 (07:43→08:44)
[2024-10-06] MEDS ORDERED: LIDOCAINE HCL/PF 2% SDV 5ML VIAL ONE (07:43)
[2024-10-06] MEDS ORDERED: MIDAZOLAM HCL 2 MG/2 ML SINGLE DOSE VIAL ONE (07:44)
[2024-10-06] MEDS ORDERED: SCOPOLAMINE HYDROBROMIDE 1 PATCH PATCH.TD72 ONE (07:46)
[2024-10-06] MEDS ORDERED: ONDANSETRON 4 MG/2 ML VIAL IVPUSH PRN (08:18)
[2024-10-06] MEDS ORDERED: LACTATED RINGERS SOLUTION 1,000 ML IV SCH (08:30)
[2024-10-06] MEDS ORDERED: DEXAMETHASONE SOD PHOSPHATE 4 MG/1 ML VIAL ONE (08:43)
[2024-10-06] MEDS: ceFAZolin 2 GRAM PREMIX BAG IVPB ONE ×2 (08:45)
[2024-10-06] MEDS: BUPIVACAINE HCL/PF 0.25% (2.5MG/ML) 10 ML VIAL IJ ONE ×2 (08:50)
[2024-10-06] MEDS ORDERED: SUGAMMADEX SODIUM 200 MG/2 ML VIAL ONE (09:24)
[2024-10-06 11:39] VITALS: RESP 20
[2024-10-06 12:29] VITALS: TEMP 97.8
[2024-10-06] MEDS ORDERED: ACETAMINOPHEN 500 MG TABLET (FP) ONE (12:40)
[2024-10-06] MEDS ORDERED: ACETAMINOPHEN 1000 MG/100 ML BAG IVPB ONE (12:45)
[2024-10-06] MEDS: ACETAMINOPHEN 500 MG TABLET (FP) PO ONE (12:51)
[2024-10-06 15:44] VITALS: BP 112/73; PULSE 78
== END 2024-10-06 15:40 | disposition home or self-care (01) ==
LOC: JASU-SURG 06:20
PROVIDERS: ATTEND Surgery
PROC: 8E0W4CZ Robotic Assisted Procedure of Trunk Region, Percutaneous Endoscopic Approach (ICD-10-PCS; 2024-10-06)
PROC: 0FT44ZZ Resection of Gallbladder, Percutaneous Endoscopic Approach (ICD-10-PCS; principal; 2024-10-06 08:00)
DX: K82.4 Cholesterolosis of gallbladder (principal)
CPT/HCPCS: 47562; S2900; 81025; 86850; 86900; 86901; 88304-TC; 94760

== ENCOUNTER 2024-12-31 16:29 | Observation (INO) | payer OTHER ==
[2024-12-31 16:45] VITALS: BMI 29.4
[2024-12-31] MEDS ORDERED: LIDOCAINE 4% PATCH TP ONE ×2 (17:25→20:54)
[2024-12-31] MEDS ORDERED: KETOROLAC TROMETHAMINE 30 MG/1 ML VIAL ONE (17:25)
[2024-12-31] MEDS ORDERED: predniSONE 20 MG TABLET (UD) ONE (17:26)
[2024-12-31] MEDS ORDERED: ACETAMINOPHEN 500 MG TABLET (FP) ONE (17:26)
[2024-12-31] MEDS: LIDOCAINE 4% PATCH TP ONE (17:34)
[2024-12-31] MEDS: ACETAMINOPHEN 500 MG TABLET (FP) PO ONE (17:34)
[2024-12-31] MEDS: predniSONE 20 MG TABLET (UD) PO ONE (17:34)
[2024-12-31] MEDS: KETOROLAC TROMETHAMINE 30 MG/1 ML VIAL IM ONE (17:34)
[2024-12-31 21:16] LABS: ABSOLUTE IMMATURE GRANULOCYTES 0.05 x10^3/uL (0.0-0.031); BASOPHILS # 0.03 x10^3/uL (0.01-0.08); EOSINOPHIL % 0.3 % (0.7-5.8); EOSINOPHILS # 0.02 x10^3/uL (0.04-0.36); MCHC 32.0 g/dl (32.2-35.5); MEAN CELL VOLUME 90.1 fl (79.4-94.8); MEAN PLT VOLUME 10.0 fl (9.4-12.3); MONOCYTE # 0.11 x10^3/uL (0.24-0.86); MONOCYTE % 1.5 % (4.7-12.5); RDW 13.5 % (12.2-17.1)
[2024-12-31] MEDS: morphine CARPU-JECT 4 MG/1 ML DISP.SYRIN IVPUSH ONE (21:18)
[2024-12-31 22:03] LABS: GLUCOSE,RANDOM 114.0 mg/dL (74-106); TOT PROT 7.6 g/dl (6.4-8.2)
[2024-12-31 22:04] LABS: CO2 22.0 mmol/L (21-32)
[2024-12-31 22:06] LABS: ALK PHOS 114.0 U/L (40-150)
[2024-12-31 22:08] LABS: SGOT/AST 41.0 U/L (5-34); SGPT/ALT 43.0 U/L (0-55)
[2024-12-31 22:09] LABS: CREATININE 0.84 mg/dL (0.55-1.3)
[2024-12-31] MEDS: LIDOCAINE PATCH REMOVAL MC SCH (22:14)
[2025-01-01] MEDS ORDERED: KETOROLAC TROMETHAMINE 15 MG/ML VIAL ONE (00:26)
[2025-01-01] MEDS ORDERED: MORPHINE SULFATE 2 MG/ML SYRINGE ONE (00:26)
[2025-01-01] MEDS: morphine CARPU-JECT 4 MG/1 ML DISP.SYRIN IVPUSH PRN (00:33)
[2025-01-01] MEDS: KETOROLAC TROMETHAMINE 15 MG/ML VIAL IVPUSH PRN (00:34)
[2025-01-01] MEDS: PREGABALIN 50 MG CAPSULE PO ONE (03:18)
[2025-01-01] MEDS: ACETAMINOPHEN 1000 MG/100 ML BAG IVPB PRN (03:20)
[2025-01-01] MEDS ORDERED: MECLIZINE HCL 25 MG TABLET (FP) PO PRN (03:20)
[2025-01-01] MEDS: MORPHINE SULFATE 2 MG/ML SYRINGE IVPUSH PRN (04:53)
[2025-01-01] MEDS ORDERED: MORPHINE SULFATE 2 MG/ML SYRINGE IVPUSH PRN (04:53)
[2025-01-01] MEDS: LIDOCAINE PATCH REMOVAL MC ONE ×2 (05:04→09:32)
[2025-01-01 07:29] LABS: ABSOLUTE IMMATURE GRANULOCYTES 0.06 x10^3/uL (0.0-0.031); BASOPHILS # 0.01 x10^3/uL (0.01-0.08); EOSINOPHIL % 0.0 % (0.7-5.8); EOSINOPHILS # 0.00 x10^3/uL (0.04-0.36); MCHC 31.2 g/dl (32.2-35.5); MEAN CELL VOLUME 90.3 fl (79.4-94.8); MEAN PLT VOLUME 10.4 fl (9.4-12.3); MONOCYTE # 0.19 x10^3/uL (0.24-0.86); MONOCYTE % 2.4 % (4.7-12.5); RDW 13.3 % (12.2-17.1)
[2025-01-01 07:50] LABS: GLUCOSE,RANDOM 119.0 mg/dL (74-106)
[2025-01-01 07:51] LABS: TOT PROT 6.5 g/dl (6.4-8.2)
[2025-01-01 07:52] LABS: CO2 22.0 mmol/L (21-32)
[2025-01-01 07:54] LABS: ALK PHOS 78.0 U/L (40-150)
[2025-01-01 07:56] LABS: CREATININE 0.71 mg/dL (0.55-1.3); SGOT/AST 24.0 U/L (5-34); SGPT/ALT 32.0 U/L (0-55)
[2025-01-01] MEDS: predniSONE 20 MG TABLET (UD) PO ONE (09:24)
[2025-01-01] MEDS: ENOXAPARIN NA (PORCINE) 40 MG/0.4 ML DISP.SYRIN SQ SCH (09:28)
[2025-01-01 13:54] VITALS: BP 116/68; PULSE 83; RESP 18; TEMP 97.9
[2025-01-01] MEDS: MELATONIN 5 MG TABLETS PO ONE (16:11)
== END 2025-01-01 16:15 | disposition home or self-care (01) ==
LOC: JER 16:29 → JERBED 22:31 → J7W 01-01 02:26
PROVIDERS: ADMIT Student in an Organized Health Care Education/Training Program; ATTEND Nurse Practitioner
PROC: 3E033NZ Introduction of Analgesics, Hypnotics, Sedatives into Peripheral Vein, Percutaneous Approach (ICD-10-PCS; principal; 2024-12-31)
PROC: 3E023GC Introduction of Other Therapeutic Substance into Muscle, Percutaneous Approach (ICD-10-PCS; 2024-12-31)
PROC: 3E0233Z Introduction of Anti-inflammatory into Muscle, Percutaneous Approach (ICD-10-PCS; 2024-12-31)
PROC: 3E0333Z Introduction of Anti-inflammatory into Peripheral Vein, Percutaneous Approach (ICD-10-PCS; 2024-12-31)
PROC: 3E033NZ Introduction of Analgesics, Hypnotics, Sedatives into Peripheral Vein, Percutaneous Approach (ICD-10-PCS; 2024-12-31)
DX: M25.511 Pain in right shoulder (principal); R42 Dizziness and giddiness; Z90.49 Acquired absence of other specified parts of digestive tract; Z90.79 Acquired absence of other genital organ(s)
CPT/HCPCS: 36415; 73030-TC-RT-FY; 80053; 83036; 83735; 84100; 84703; 85025; 96372; 96374; 96375; 96376; 97116-GP; 97161-GP; 99285-25; G0378